=== PATIENT | female | born 1960 | race African-American/Black ===

== ENCOUNTER → 2016-10-28 | Outpatient (CLI) | payer OTHER ==
--- NOTE | 2016-10-28 12:40 | KCIC ---
Bilateral digital screening mammograms: Reason for examination: Routine screening. History of right breast cancer with lumpectomy. Comparison is made to previous studies dated back to 04/15/2012. The skin and nipples show no abnormalities. No abnormal axillary lymph nodes are seen. The breast parenchyma shows scattered fibroglandular density. (Breast density: Category B.) There are postoperative changes in the lower inner quadrant of the right breast. There continues to be some parenchymal asymmetry in the upper outer quadrant of the left breast which has not changed. There also continues to be a small nodular density in the 12:00 position anteriorly in the left breast which was shown to be a cyst on previous ultrasound. There are no new dominant masses, suspicious calcifications or architectural distortions. A few benign calcifications are present. Impression: Postoperative changes in the right breast. Continued presence of a small cyst in the subareolar left breast. No evidence of new or recurrent malignancy. Recommend routine screening. BI-RADS category 2: Benign "Our facility is accredited by the [employer]ammography [employer]." This patient's information has been entered into a reminder system for the patient to be notified with the results of her examination and a target date for the next mammogram. Electronically signed by: Bren Carlos MD (10/28/2016 12:36 PM)
== END | disposition home or self-care (01) ==
LOC: KCIC MAMMO 11:37
PROVIDERS: ATTEND Family Medicine
DX: Z12.31 Encounter for screening mammogram for malignant neoplasm of breast (principal)
CPT/HCPCS: G0202; 77067

== ENCOUNTER → 2016-11-10 | Day surgery (SDC) | payer OTHER ==
[~2016-11-10] MED LIST: ARIP5TAB13 PO; FENO145T PO; HYDROmorphone 2 MG/ML VIAL IV PRN; IV RINGERS,LACTATED 1000ML 1,000 ML IV SCH; LIDOCAINE 1% 1 ML SYRINGE. ID PRN; LIDOCAINE 2% PF Vial for OR 5 ML VIAL. ONE; MORPHINE SULFATE 2 MG/ML DISP.SYRIN. IV PRN; ONDANSETRON PF 4 MG/2 ML VIAL. IV PRN; PROCHLORPERAZINE 10 MG/2 ML VIAL. IV PRN; PROPOFOL 60 ML IV ONE; SERT100T PO; TELM40TA PO; UBID10CA5 PO; fentaNYL PF VIAL 100 MCG/2 ML VIAL IV PRN
--- NOTE | 2016-11-10 13:04 | PDOC1 ---
History and Physical Date of Admission Date of Admission DATE: 11/10/16 TIME: 12:59 Source Source: Chart review, Patient History of Present Illness History of Present Illness 56 y/o female with h/o colon polyps; last exam ~8 years ago. Other than some constipation no complaints. Long h/o heartburn w/o prior EGD. Other history unrevealing. Past Medical History Cardiovascular: Hyperlipidemia Heme/Onc: Cancer (breast) Psych: Anxiety, Depression Musculoskeletal: Osteoarthritis Past Surgical History Past Surgical History Breast surgery Family History Family History: Cancer (breast(aunt)/colon(grandfather)), Coronary Artery Disease, Diabetes, Stroke Social History Smoke: <1 pack per day ALCOHOL: occassional Drugs: None Current Medications Current Medications Current Medications Ondansetron HCl (Zofran) 4 mg PRN Q6HRS PRN IV NAUSEA/VOMITING; Start 11/10/16 at 07:00; Stop 11/10/16 at 18:00 Fentanyl Citrate (Fentanyl 2ml Vial) 25 mcg PRN Q5MIN PRN IV MILD PAIN; Start 11/10/16 at 07:00; Stop 11/10/16 at 18:00 Fentanyl Citrate (Fentanyl 2ml Vial) 50 mcg PRN Q5MIN PRN IV MODERATE PAIN; Start 11/10/16 at 07:00; Stop 11/10/16 at 18:00 Morphine Sulfate 1 mg PRN Q10MIN PRN IV SEVERE PAIN; Start 11/10/16 at 07:00; Stop 11/10/16 at 18:00 Ringer's Solution 1,000 ml @ 30 mls/hr Q24H IV Last administered on 11/10/16t 12:41; Start 11/10/16 at 07:00; Stop 11/10/16 at 18:59 Lidocaine HCl 2 ml PRN 1X PRN ID PRIOR TO IV START; Start 11/10/16 at 07:00; Stop 11/10/16 at 18:00 Hydromorphone HCl (Dilaudid) 0.5 mg PRN Q10MIN PRN IV SEV PAIN, Second choice; Start 11/10/16 at 07:00; Stop 11/10/16 at 18:00 Prochlorperazine Edisylate (Compazine) 5 mg PACU PRN PRN IV NAUSEA, MRX1; Start 7/10/17 at 07:00; Stop 11/10/16 at 18:00 Active Scripts Active Reported Co Q-10 (Ubidecarenone) 10 Mg Capsule 10 Mg PO Abilify (Aripiprazole) 5 Mg Tablet 5 Mg PO DAILY Zoloft (Sertraline Hcl) 100 Mg Tablet 150 Mg PO DAILY Tricor (Fenofibrate Nanocrystallized) 145 Mg Tablet 145 Mg PO DAILY Micardis (Telmisartan) 40 Mg Tablet 1 Tab PO DAILY Allergies Allergies: Coded Allergies: No Known Drug Allergies (Unverified , 11/10/16) ROS Review of System Otherwise negative. Physical Exam General: Alert, Oriented X3, Cooperative, No acute distress Lungs: Clear to auscultation Heart: S1S2, RRR, no gallops, no murmurs Abdomen: Normal bowel sounds, Soft, No tenderness, No hepatosplenomegaly, No masses Rectal Exam: deferred (to procedure) Extremities: No cyanosis, No edema Skin: No significant lesion Neuro: Normal speech, Strength at 5/5 X4 ext, Normal tone, Sensation intact, Cranial nerves 3-12 NL, Reflexes 2+ Psych/Mental Status: Mental status NL, Mood NL Vitals Vitals Vital Signs Date Time Temp Pulse Resp B/P (MAP) Pulse Ox O2 Delivery O2 Flow Rate FiO2 11/10/16 12:17 98 74 18 95 98.0 VTE Prophylaxis Ordered VTE Prophylaxis Devices: No VTE Pharmacological Prophylaxi: No Assessment/Plan Assessment/Plan IMP: H/o polyps, due Chronic heartburn. Merits at least one EGD to screen for Patten's. PLAN: Colonoscopy/EGD. Other pending. PEEWEE RENNER MD Nov 10, 2016 13:04
--- NOTE | 2016-11-10 13:54 | PDOC4 ---
PROCEDURE Procedure EGD/colonoscopy IND: chronic HB, r/o Patten's/history of polyps MEDS: per anesthesia. Findings: E--less than grade I esophagitis at 38cm. G--linear erythema, antrum. Biopsies. D--Normal to second portion. TAPAN: Fibroid uterus? large lipoma proximal ascending. 7-8 mm macular polyp, proximal transverse, biopsied off 4-5mm sessile polyp, distal transverse, biopsied off 10mm sessile polyp, distal sigmoid, snared and retrieved 6mm macular lesion mid-descending, unclear nature, biopsied with some bleeding-- clip placed and stopped. (AVM?). Internal hemorrhoids. Torie. well. IMP: Reflux esophagitis Gastritis Polyps Lipoma Macular lesion, vascular? Internal hemorrhoids. Uterine fibroids? REC: Resume usual diet and meds. Await path. No ASA, NSAIDS for 2 weeks. F/u in office in 2 weeks. Repeat colonoscopy pending path. PEEWEE RENNER MD Nov 10, 2016 13:54
[2016-11-10 14:25] VITALS: BP 116/71
--- NOTE | 2016-11-12 10:56 | PATHOLOGY ---
PATHOLOGY REPORT * * * * * * * * FINAL DIAGNOSIS: A. Gastric biopsy "biopsy antrum": - Mild chronic reactive gastropathy. - The immunoperoxidase for Helicobacter pylori is negative. B. Colonic mucosa "biopsy proximal transverse colon polyp": - Fragments of hyperplastic polyps. - There is no evidence of adenomatous change, high-grade dysplasia or malignancy. C. Colonic mucosa "biopsy mid transverse colon polyp": - Tubular adenoma. - There is no evidence of high-grade dysplasia or malignancy. D. Colonic mucosa "biopsy sessile lesion mid descending": - Polypoid colonic mucosa consistent with early hyperplastic polyp. - There is no evidence of adenomatous changes, high-grade dysplasia or malignancy. E. Colonic mucosa "sigmoid polyp biopsy": - Hyperplastic polyp. - There is no evidence of adenomatous changes, high-grade dysplasia or malignancy. ([facility]; 11/12/2016) REPORT ELECTRONICALLY SIGNED BY: Paolo Moore M.D. DATE/TIME: 11/12/2016 10:55 * * * * * * * * GROSS PATHOLOGY: A. Received in formalin labeled "Oseas, Javad, antrum biopsy," are two segments of vaughn soft tissue measuring 0.3 and 0.4 cm in maximum dimension. The specimen is submitted entirely in cassette A1. B. Received in formalin labeled "biopsy proximal transverse," are multiple segments of vaughn soft tissue ranging from 0.1 to 0.4 cm in maximum dimension. The specimen is submitted entirely in cassette B1. C. Received in formalin labeled "biopsy mid transverse colon polyp," is a segment of vaughn soft tissue measuring 0.4 cm in maximum dimension. The specimen is submitted entirely in cassette C1. D. Received in formalin labeled "biopsy sessile lesion mid descending colon," is a segment of vaughn soft tissue measuring 0.2 cm in maximum dimension. The specimen is submitted entirely in cassette D1. E. Received in formalin labeled "sigmoid polyp," is a 0.7 x 0.5 x 0.5 cm polypoid piece of vaughn soft tissue. The margin is inked and the tissue is sectioned perpendicular to the margin and submitted in its entirety in cassette E1. ([facility]; 11/11/16) INITIAL CPT CODE(S): A; 42224, 10449 B; 72477 C; 57584 D; 06441 E; 03439 Professional services performed by [facility] [place] [address] Technical services performed by [facility] at [address] [place] [address], [address], [place] [address]. SPECIMEN(S) RECEIVED: A.Biopsy antrum B.Biopsy proximal transverse colon polyp C.Biopsy mid transverse colon polyp D.Biopsy sesile lesion mid descending colon E.Sigmoid polyp CLINICAL HISTORY: History of colon polyps, GERD; reflux esophagitis, colon polyps PATIENT: JAVAD FARNSWORTH /AGE: 1204/24/1960 (Age: 56) PATIENT #: [id number] ALT CASE #: SPECIMEN COLLECTION DATE: 11/10/2016 SPECIMEN RECEIVED DATE: 11/11/2016 [facility] - [id number] [place] [address] - PHONE: [phone] * * * END OF REPORT * * *
== END | disposition home or self-care (01) ==
LOC: ENDOS 11:49
PROVIDERS: ATTEND Internal Medicine Gastroenterology
DX: Z09 Encounter for follow-up examination after completed treatment for conditions other than malignant neoplasm (principal); Z87.19 Personal history of other diseases of the digestive system; D12.6 Benign neoplasm of colon, unspecified; K21.0 Gastro-esophageal reflux disease with esophagitis; K31.89 Other diseases of stomach and duodenum; E78.00 Pure hypercholesterolemia, unspecified; I10 Essential (primary) hypertension; M19.90 Unspecified osteoarthritis, unspecified site; F32.9 Major depressive disorder, single episode, unspecified; Z87.39 Personal history of other diseases of the musculoskeletal system and connective tissue; Z72.89 Other problems related to lifestyle; Z83.3 Family history of diabetes mellitus
CPT/HCPCS: 43239; 45380; 45385; 88305; J2001; J2704

== ENCOUNTER 2017-06-15 15:12 | Inpatient (IN) | payer OTHER, MEDICARE ==
[2017-06-15] MEDS: IV NORMAL SALINE 1000ML BAG 1,000 ML IV ×2 (16:43→20:12)
[2017-06-15] MEDS: IOHEXOL 300 MG/ML 100ML VIAL. IV (16:45)
[2017-06-15 16:48] LABS: BASO # 0.1 x10^3/uL (0.0-0.2); BASO % 1 % (0-3); BILIRUBIN,URINE NEGATIVE (NEG); CLARITY,URINE CLEAR; COLOR,URINE YELLOW; EOS # 0.1 x10^3/uL (0.0-0.7); EOS % 0 % (0-3); GLUCOSE,URINE NEGATIVE (NEG); HEMOGLOBIN 12.7 g/dL (12.0-15.5); LYMPH # 2.3 x10^3/uL (1.0-4.8); LYMPH % 13 % (24-48); MEAN CORPUSCULAR HEMOGLOBIN 29 pg (25-35); MEAN CORPUSCULAR HGB CONC 33 g/dL (31-37); MEAN CORPUSCULAR VOLUME 89 fL (79-100); MONO # 1.1 x10^3/uL (0.0-1.1); MONO % 6 % (0-9); NEUT # 14.9 x10^3uL (1.8-7.7); NEUT % 80 % (31-73); NITRITE,URINE NEGATIVE (NEG); PH,URINE 6.5; PLATELET COUNT 452 x10^3/uL (140-400); PROTEIN,URINE NEGATIVE (NEG-TRACE); RED BLOOD COUNT 4.37 x10^6/uL (3.50-5.40); RED CELL DISTRIBUTION WIDTH 16.5 % (11.5-14.5); WHITE BLOOD COUNT 18.5 x10^3/uL (4.0-11.0)
[2017-06-15 16:49] LABS: ADD MAN DIFF? YES
[2017-06-15 17:00] LABS: BACTERIA,URINE FEW /HPF (0-FEW); RBC,URINE RARE /HPF (0-2); SQUAMOUS EPITHELIAL CELL,UR MOD /LPF; WBC,URINE RARE /HPF (0-4)
[2017-06-15 17:04] LABS: ANION GAP 10 (6-14); BLOOD UREA NITROGEN 11 mg/dL (7-20); BUN/CREATININE RATIO 18 (6-20); CALCIUM 9.3 mg/dL (8.5-10.1); CARBON DIOXIDE 27 mmol/L (21-32); CHLORIDE 102 mmol/L (98-107); CREATININE 0.6 mg/dL (0.6-1.0); GFR 123.8; GLUCOSE 123 mg/dL (70-99); POTASSIUM 3.4 mmol/L (3.5-5.1); SODIUM 139 mmol/L (136-145)
[2017-06-15 17:10] LABS: ALBUMIN 2.7 g/dL (3.4-5.0); ALBUMIN/GLOBULIN RATIO 0.6 (1.0-1.7); ALK PHOS 65 U/L (46-116); ALT (SGPT) 17 U/L (14-59); AST (SGOT) 20 U/L (15-37); TOTAL BILIRUBIN 0.3 mg/dL (0.2-1.0); TOTAL PROTEIN 7.6 g/dL (6.4-8.2)
[2017-06-15 17:18] LABS: THYROID STIM HORMONE (TSH) 0.951 uIU/mL (0.358-3.74)
[2017-06-15 18:45] LABS: % BANDS 1 % (0-9); % LYMPHS 10 % (24-48); % MONOS 5 % (0-10); % SEGS 84 % (35-66)
[2017-06-15 18:47] LABS: PLT ESTIMATE INCREASED (ADEQUATE); TOXIC GRANULATION MOD; TOXIC VACUOLATION MOD
[2017-06-15] MEDS: ONDANSETRON PF 4 MG/2 ML VIAL. IV ×2 (19:29→22:02)
[2017-06-15] MEDS ORDERED: CONTRAST GIVEN MC (19:30)
[2017-06-15] MEDS ORDERED: ONDANSETRON PF 4 MG/2 ML VIAL. IV (19:45)
[2017-06-15] MEDS ORDERED: hydrALAZINE 20 MG/ML VIAL. IVP (20:45)
[2017-06-15] MEDS: POTASSIUM CHLORIDE 20 MEQ TABLET.ER. PO (20:45)
[2017-06-15] MEDS ORDERED: DOCUSATE SODIUM 100 MG CAPSULE. PO (20:45)
[2017-06-15] MEDS ORDERED: MORPHINE SULFATE 2 MG/ML DISP.SYRIN. IV (20:45)
[2017-06-15] MEDS: ENOXAPARIN 40 MG/0.4 ML SYRINGE. SQ (21:00)
[2017-06-15] MEDS: POTASSIUM CL 20MEQ D5-0.9%NACL 1,000 ML IV (22:02)
[2017-06-16 04:52] LABS: ADD MAN DIFF? NO
[2017-06-16 05:00] LABS: BASO # 0.1 x10^3/uL (0.0-0.2); BASO % 1 % (0-3); EOS # 0.2 x10^3/uL (0.0-0.7); EOS % 1 % (0-3); HEMATOCRIT 35.8 % (36.0-47.0); HEMOGLOBIN 11.9 g/dL (12.0-15.5); LYMPH # 3.3 x10^3/uL (1.0-4.8); LYMPH % 21 % (24-48); MEAN CORPUSCULAR HEMOGLOBIN 30 pg (25-35); MEAN CORPUSCULAR HGB CONC 33 g/dL (31-37); MEAN CORPUSCULAR VOLUME 89 fL (79-100); MONO # 1.5 x10^3/uL (0.0-1.1); MONO % 9 % (0-9); NEUT # 10.9 x10^3uL (1.8-7.7); NEUT % 69 % (31-73); PLATELET COUNT 420 x10^3/uL (140-400); RED BLOOD COUNT 4.04 x10^6/uL (3.50-5.40); RED CELL DISTRIBUTION WIDTH 16.2 % (11.5-14.5); WHITE BLOOD COUNT 15.9 x10^3/uL (4.0-11.0)
[2017-06-16 05:10] LABS: ANION GAP 7 (6-14); BLOOD UREA NITROGEN 9 mg/dL (7-20); CALCIUM 9.1 mg/dL (8.5-10.1); CARBON DIOXIDE 27 mmol/L (21-32); CHLORIDE 105 mmol/L (98-107); CREATININE 0.6 mg/dL (0.6-1.0); GFR 123.8; GLUCOSE 115 mg/dL (70-99); POTASSIUM 3.8 mmol/L (3.5-5.1); SODIUM 139 mmol/L (136-145)
[2017-06-16] MEDS: IV NORMAL SALINE 1000ML BAG 1,000 ML IV (05:40)
[2017-06-16] MEDS: ARIPiprazole 5 MG TABLET PO (09:00)
[2017-06-16] MEDS: SERTRALINE 50 MG TABLET. PO (09:00)
[2017-06-16] MEDS: POTASSIUM CL 20MEQ D5-0.9%NACL 1,000 ML IV ×2 (10:05→23:47)
[2017-06-16] MEDS: GADOBUTROL 7.5 MMOL/7.5 ML VIAL IV (10:09)
[2017-06-16] MEDS: FENOFIBRATE,MICRONIZED 134 MG CAPSULE PO (10:36)
[2017-06-16] MEDS: LOSARTAN POTASSIUM 50 MG TABLET. PO (10:37)
[2017-06-16] MEDS: ONDANSETRON PF 4 MG/2 ML VIAL. IV ×2 (10:50→16:29)
[2017-06-16] MEDS: DEXAMETHASONE SOD PHOS 4 MG/ML VIAL IV ×3 (12:00→23:47)
[2017-06-16] MEDS ORDERED: LIDOCAINE WITH 8.4% SOD BICARB 3 ML DISP.SYRIN. (14:07)
[2017-06-16] MEDS: ACETAMINOPHEN 325 MG TABLET. PO (15:08)
[2017-06-16] MEDS: ENOXAPARIN 40 MG/0.4 ML SYRINGE. SQ (15:39)
[2017-06-16] MEDS: traMADol 50 MG TABLET PO (16:29)
[2017-06-16] MEDS ORDERED: PROCHLORPERAZINE 10 MG/2 ML VIAL. IV (16:45)
[2017-06-16] MEDS ORDERED: MAGNESIUM HYDROXIDE 2,400 MG/30 ML ORAL.SUSP. PO (16:45)
[2017-06-16] MEDS ORDERED: DOCUSATE SODIUM 100 MG CAPSULE. PO (16:45)
[2017-06-16] MEDS: DOCUSATE SODIUM 100 MG CAPSULE. PO (17:12)
[2017-06-16] MEDS: POLYETHYLENE GLYCOL 3350 17 GM PACKET. PO (17:12)
[2017-06-17 05:05] LABS: INR 1.2 (0.8-1.1); PROTHROMBIN TIME PATIENT 14.9 SEC (11.7-14.0)
[2017-06-17] MEDS: DEXAMETHASONE SOD PHOS 4 MG/ML VIAL IV ×2 (06:16→14:50)
[2017-06-17] MEDS: DOCUSATE SODIUM 100 MG CAPSULE. PO (07:28)
[2017-06-17] MEDS: PANTOPRAZOLE IV PUSH 40 MG VIAL. IVP (08:19)
[2017-06-17] MEDS: LOSARTAN POTASSIUM 50 MG TABLET. PO (08:20)
[2017-06-17] MEDS: FENOFIBRATE,MICRONIZED 134 MG CAPSULE PO (08:20)
[2017-06-17] MEDS: ENOXAPARIN 40 MG/0.4 ML SYRINGE. SQ (08:20)
[2017-06-17] MEDS ORDERED: LIDOCAINE WITH 8.4% SOD BICARB 3 ML DISP.SYRIN. (08:49)
[2017-06-17] MEDS: GADOBUTROL 7.5 MMOL/7.5 ML VIAL IV (08:49)
[2017-06-17] MEDS ORDERED: GELATIN SPONGE SIZE 12-7MM SPONGE. (08:49)
[2017-06-17] MEDS ORDERED: MIDAZOLAM HCL/PF 2 MG/2 ML VIAL. (09:04)
[2017-06-17] MEDS ORDERED: fentaNYL PF VIAL 100 MCG/2 ML VIAL (09:04)
[2017-06-17] MEDS: LIDOCAINE WITH 8.4% SOD BICARB 3 ML DISP.SYRIN. IJ (09:25)
[2017-06-17] MEDS: fentaNYL PF VIAL 100 MCG/2 ML VIAL IV (09:26)
[2017-06-17] MEDS: MIDAZOLAM HCL/PF 2 MG/2 ML VIAL. IV (09:27)
[2017-06-17] MEDS: POLYETHYLENE GLYCOL 3350 17 GM PACKET. PO (14:50)
[2017-06-17] MEDS: DEXAMETHASONE SOD PHOS 4 MG/ML VIAL PO (17:38)
== END 2017-06-17 20:00 | disposition home or self-care (01) | DRG 180 ==
LOC: ER 15:12 → 4 NORTH 19:17
PROC: 0BBC3ZX Excision of Right Upper Lung Lobe, Percutaneous Approach, Diagnostic (ICD-10-PCS; principal; 2017-06-17)
DX: C34.11 Malignant neoplasm of upper lobe, right bronchus or lung (principal); G93.6 Cerebral edema; G91.1 Obstructive hydrocephalus; E44.0 Moderate protein-calorie malnutrition; C79.31 Secondary malignant neoplasm of brain; C79.71 Secondary malignant neoplasm of right adrenal gland; C79.72 Secondary malignant neoplasm of left adrenal gland; J32.9 Chronic sinusitis, unspecified; R04.2 Hemoptysis; E87.6 Hypokalemia; D72.829 Elevated white blood cell count, unspecified; E27.9 Disorder of adrenal gland, unspecified; E78.5 Hyperlipidemia, unspecified; F12.90 Cannabis use, unspecified, uncomplicated; F17.210 Nicotine dependence, cigarettes, uncomplicated; F32.9 Major depressive disorder, single episode, unspecified; G93.89 Other specified disorders of brain; M19.90 Unspecified osteoarthritis, unspecified site; F41.9 Anxiety disorder, unspecified; I10 Essential (primary) hypertension; J44.9 Chronic obstructive pulmonary disease, unspecified; K59.00 Constipation, unspecified; Z82.3 Family history of stroke; Z82.49 Family history of ischemic heart disease and other diseases of the circulatory system; Z83.3 Family history of diabetes mellitus; Z85.3 Personal history of malignant neoplasm of breast; Z92.21 Personal history of antineoplastic chemotherapy; Z92.3 Personal history of irradiation; Z68.22 Body mass index [BMI] 22.0-22.9, adult
CPT/HCPCS: 32405; 36415; 70553; 71045; 71260; 74177; 74183; 77012; 78306; 80048; 80053; 81001; 84443; 85007; 85025; 85610; 88305; 88341; 88342; 96361; 96374; 97161-GP; 97165-GO; 99152; 99285; 99285-25; A9503; A9585; C9113; J1100; J2250; J2405; J3010; J7030; Q9967